=== PATIENT | female | born 1990 | race Caucasian/White ===

== ENCOUNTER 2019-02-19 19:18 | Emergency (ER) | payer OTHER ==
[~2019-02-19] VITALS: Ht 162.6 cm; Wt 61.2 kg
== END 2019-02-19 19:53 | disposition home or self-care (01) ==
LOC: ER 19:18
DX: S91.242A Puncture wound with foreign body of left great toe with damage to nail, initial encounter (principal); W26.8XXA Contact with other sharp object(s), not elsewhere classified, initial encounter; Y93.89 Activity, other specified; Y92.89 Other specified places as the place of occurrence of the external cause; Y99.8 Other external cause status

== ENCOUNTER 2019-03-17 19:07 | Emergency (ER) | payer OTHER ==
[~2019-03-17] VITALS: Ht 162.6 cm; Wt 61.2 kg
== END 2019-03-17 22:11 | disposition home or self-care (01) ==
LOC: ER 19:07
DX: E03.8 Other specified hypothyroidism (principal); M94.0 Chondrocostal junction syndrome [Tietze]